=== PATIENT | male | born 1975 | race African-American/Black ===

== ENCOUNTER 2017-03-05 14:13 | Emergency (ER) | payer OTHER ==
[~2017-03-05] VITALS: Ht 170.2 cm; Wt 107.0 kg
[2017-03-05 14:16] VITALS: Ht 170.2 cm; Wt 107.0 kg
--- NOTE | 2017-03-05 14:45 | ERD ---
ER Documentation Chief Complaint Date/Time DATE: 03/05/17 TIME: 14:43 Chief Complaint RT SIDED ABD PAIN X 3 DAYS NO N/V HPI This is a 41-year-old male with a history of cholecystectomy that was done on February 21, 2017 comes emergency department with 5 days of right upper quadrant abdominal pain. This patient states that he has had increasingly painful abdominal pain in the right upper quadrant, it radiates the right flank now and it is intermittent. Patient states that he did see his surgeon yesterday in the office who is Dr. Garcia, and I was told to return to the emergency department the pain does not improve. He has not tried anything for pain, previously for the surgery he was taking [place]. He denies any fevers, chills, nausea, vomiting. He denies chest pain, shortness of breath. ROS All systems reviewed and are negative except as per history of present illness. Physical Exam Vitals Vital Signs Date Time Temp Pulse Resp B/P Pulse Ox O2 Delivery O2 Flow Rate FiO2 03/05/17 14:16 98.2 101 19 143/69 100 Physical Exam General: Well-developed, well-nourished. The patient appears in no acute distress. HEENT: Head is normocephalic, atraumatic. No scleral icterus. Neck: Supple. Nontender. Lungs: Clear to auscultation. Normal air movement. Heart: Regular rate and rhythm. S1 and S2 are normal. No murmurs, gallops, or rubs. Abdomen: Soft, mild tenderness in the right upper quadrant nondistended. Bowel sounds are normoactive. Scars present in right side, intact, no dehiscence. No drainage of the wounds. No McBurney's tenderness or right rebound or guarding. Extremities: No clubbing or cyanosis. Normal pulses. Moving extremities x 4. No weakness. Neurologic: Alert and oriented 3. No focal deficits. Skin: Normal turgor. No rash or lesions. Result Diagram: 03/05/17 1455 03/05/17 1455 Results 24 hrs Laboratory Tests Test 03/05/17 14:55 03/05/17 15:01 White Blood Count 3.710^3/ul Red Blood Count 5.2310^6/ul Hemoglobin 14.5g/dl Hematocrit 43.7% Mean Corpuscular Volume 83.6fl Mean Corpuscular Hemoglobin 27.7pg Mean Corpuscular Hemoglobin Concent 33.2g/dl Red Cell Distribution Width 13.9% Platelet Count 57316^3/UL Mean Platelet Volume 9.6fl Neutrophils % 33.7% Lymphocytes % 54.3% Monocytes % 8.3% Eosinophils % 3.2% Basophils % 0.5% Nucleated Red Blood Cells % 0.0/100WBC Neutrophils # 1.310^3/ul Lymphocytes # 2.010^3/ul Monocytes # 0.310^3/ul Eosinophils # 0.110^3/ul Basophils # 0.010^3/ul Nucleated Red Blood Cells # 0.010^3/ul Sodium Level 140mmol/L Potassium Level 4.1mmol/L Chloride Level 103mmol/L Carbon Dioxide Level 27mmol/L Anion Gap 14 Blood Urea Nitrogen 8mg/dl Creatinine 0.77mg/dl Glucose Level 93mg/dl Calcium Level 9.5mg/dl Total Bilirubin 0.1mg/dl Direct Bilirubin 0.00mg/dl Indirect Bilirubin 0.1mg/dl Aspartate Amino Transf (AST/SGOT) 28IU/L Alanine Aminotransferase (ALT/SGPT) 41IU/L Alkaline Phosphatase 64IU/L Total Protein 7.9g/dl Albumin 4.4g/dl Globulin 3.50g/dl Albumin/Globulin Ratio 1.25 Lipase 89U/L Urine Color YELLOW Urine Clarity CLEAR Urine pH 6.5 Urine Specific [place] 1.020 Urine Ketones TRACE Urine Nitrite NEGATIVE Urine Bilirubin NEGATIVE Urine Urobilinogen 1.0 E.U./dL Urine Leukocyte Esterase NEGATIVE Urine Microscopic RBC NONE SEEN/HPF Urine Microscopic WBC NONE SEEN/HPF Urine Squamous Epithelial Cells RARE Urine Hemoglobin NEGATIVE Urine Glucose NEGATIVE% Urine Total Protein TRACE Current Medications Medications (Trade) Dose Ordered Sig/Mega Route PRN Reason Start Time Stop Time Status Last Admin Dose Admin IV Flush 10 ml 10 ml STK-MED ONCE .ROUTE 03/05/17 16:34 03/05/17 16:35 DC 03/05/17 16:41 Sodium Chloride (NS) 100 ml @ ud STK-MED ONCE .ROUTE 03/05/17 16:34 03/05/17 16:35 DC 03/05/17 16:43 Iohexol (Omnipaque 300mg/ ml) 30 ml STK-MED ONCE .ROUTE 03/05/17 16:34 03/05/17 16:35 DC Iohexol (Omnipaque 300mg/ ml) 150 ml STK-MED ONCE .ROUTE 03/05/17 16:34 03/05/17 16:35 DC 03/05/17 16:43 PROCEDURE: CT abdomen and pelvis with IV contrast. CLINICAL INDICATION: Abdominal pain. History of cholecystectomy. TECHNIQUE: CT scan of the abdomen and pelvis without contrast was performed on the [employer] volumetric [address] scanner. Approximately a her ccs of Omnipaque- 300 was administered. The patient was scanned without intravenous contrast. Coronal and sagittal reformatted images were obtained from the axial source images. The CTDI vol is 20.24 mGy and the DLP is 1139.82 mGy-cm. COMPARISON: None. FINDINGS: CT abdomen: The lung bases are clear. The heart size is not enlarged and is without pericardial thickening or effusion. The liver is normal in size and is without intrahepatic biliary dilatation. Extensive amount of ill-defined low attenuation lesions throughout the liver are seen. The liver lesions are conglomerate in appearance. The portal vein is patent. The spleen is normal in size and homogeneous in density. The stomach is grossly unremarkable. The pancreas as visualized is normal. The gallbladder has been removed. No common bile duct dilatation is seen. No focal fluid collection in the gallbladder fossa is seen. Mild increased soft tissue density within the gallbladder fossa is seen. The adrenal glands are symmetric and normal. The kidneys are symmetrically unremarkable as well. No renal calculus or obstructive uropathy or mass lesion is seen. The aorta is of normal in caliber. Increased soft tissue density in the umbilical region is seen with a foci of air. There is no retroperitoneal lymphadenopathy. The ross hepatis region is clear. The large bowel is stool- filled. Sigmoid diverticulosis is seen without evidence of diverticulitis. The small and remainder of the large bowel and mesentery, as visualized, are otherwise unremarkable. The normal appendix is identified. CT pelvis: The pelvic organs are normal. The pelvic sidewalls and inguinal regions are clear. No pelvic mass, lymphadenopathy, or free fluid is seen. No acute inflammation is seen. The urinary bladder is within normal limits. The surrounding osseous structures are unremarkable. No osteolytic or osteoblastic lesion is detected. IMPRESSION: 1. Extensive ill-defined liver lesions which are conglomerate in appearance worrisome for neoplastic process. The possibility of an infectious/inflammatory etiology cannot be excluded. Further evaluation with a dynamic contrast enhanced MRI of the liver is recommended. 2. Status post cholecystectomy likely postoperative changes as detailed above. 3. Sigmoid diverticulosis without evidence of diverticulitis. 4. Stool filled large bowel. Results were discussed with Star Kaur Pa-c at 03/05/2017 4:50:49 PM RPTAT: HPNM Joaquín Mendieta Physician Date Time Electronically viewed and signed by Joaquín Mendieta, Physician on 03/05/2017 16 :54 / Procedures/MDM ED course: Patient had an IV line established, blood and urine were obtained. CT abdomen pelvis with IV contrast was ordered. He was offered pain medication however he kindly declined at this time. MDM: 41-year-old male status post cholecystectomy comes in with right sided upper abdominal pain for 5 days. Patient presents with right upper quadrant pain, he reports that he did not have imaging prior to his cholecystectomy, the last time was at the end of 2015. He has a liver lesion, possibly neoplastic versus infectious Liver enzymes are normal at this time, and platelets were normal. Given this as he is not in liver failure, and does not present with acute hepatitis, and his pain is under control at this time, patient will be discharged to have an outpatient workup. Patient's labs also did not have any leukocytosis, transaminitis or pancreatitis, there is no evidence of biliary leakage, as a CT abdomen pelvis of the rest of the right upper quadrant was unremarkable at this time. He was given copies of all imaging tests results and blood work, he was asked to follow-up with his primary care physician who is Dr. Perry, and also notify his surgeon regarding these results. The case was reviewed and discussed with Dr Perry who agrees with the plan of care including labs, treatment, and advanced imaging as appropriate. Departure Diagnosis: Primary Impression: Abdominal pain Additional Impression: Lesion of liver Condition: Good STAR KAUR PA-C March 05, 2017 14:45
[2017-03-05 15:13] LABS: ADD SCAN DIFF NO
[2017-03-05 15:15] LABS: BASOPHILS % 0.5 % (0.0-2.0); EOSINOPHILS # 0.1 10^3/ul (0.0-0.5); EOSINOPHILS % 3.2 % (0.0-7.0); HEMATOCRIT 43.7 % (42.0-52.0); HEMOGLOBIN 14.5 g/dl (14.0-18.0); LYMPHOCYTES % 54.3 % (15.0-51.0); MEAN CORPUSCULAR HEMOGLOBIN 27.7 pg (29.0-33.0); MEAN CORPUSCULAR HGB CONC 33.2 g/dl (32.0-37.0); MEAN CORPUSCULAR VOLUME 83.6 fl (82.0-101.0); MEAN PLATELET VOLUME 9.6 fl (7.4-10.4); MONOCYTE # 0.3 10^3/ul (0.3-0.9); MONOCYTES % 8.3 % (0.0-11.0); NEUTROPHIL # 1.3 10^3/ul (1.6-7.5); NEUTROPHILS % 33.7 % (39.0-77.0); PLATELET COUNT 270 10^3/UL (140-415); RED BLOOD COUNT 5.23 10^6/ul (4.70-6.10); RED CELL DISTRIBUTION WIDTH 13.9 % (11.5-14.5); WHITE BLOOD COUNT 3.7 10^3/ul (4.8-10.8)
[2017-03-05 15:24] LABS: ADD UMIC YES; URINE BILIRUBIN (Dip) NEGATIVE (NEGATIVE); URINE BLOOD (Dip) NEGATIVE (NEGATIVE); URINE COLOR YELLOW (YELLOW); URINE GLUCOSE (Dip) NEGATIVE (NEGATIVE); URINE KETONES (Dip) TRACE (NEGATIVE); URINE LEUKOCYTE ESTERASE (Dip) NEGATIVE (NEGATIVE); URINE NITRITE (Dip) NEGATIVE (NEGATIVE); URINE TOTAL PROTEIN (Dip) TRACE (NEGATIVE); URINE UROBILINOGEN (Dip) 1.0 E.U./dL (0.1-1.0)
[2017-03-05 15:38] LABS: ALBUMIN 4.4 g/dl (3.3-4.9); ALBUMIN/GLOBULIN RATIO 1.25; BILIRUBIN,INDIRECT 0.1 mg/dl (0-1.1); BILIRUBIN,TOTAL 0.1 mg/dl (0.2-1.3); CALCIUM 9.5 mg/dl (8.4-10.2); CREATININE 0.77 mg/dl (0.61-1.24); POTASSIUM 4.1 mmol/L (3.5-5.1); TOTAL PROTEIN 7.9 g/dl (6.1-8.1)
[2017-03-05 15:53] LABS: SQUAMOUS EPITHELIAL CELL,UR RARE; URINE RBCS NONE SEEN /HPF (0)
[2017-03-05] MEDS ORDERED: IOHEXOL 300MG/ML 30 ML BTL ONE (16:34)
[2017-03-05] MEDS ORDERED: SOD CHLORIDE 0.9% 100 ML ONE (16:34)
[2017-03-05] MEDS ORDERED: IOHEXOL 300MG/ML 150 ML BTL ONE (16:34)
--- NOTE | 2017-03-05 16:55 | RADRPT ---
PROCEDURE: CT abdomen and pelvis with IV contrast. CLINICAL INDICATION: Abdominal pain. History of cholecystectomy. TECHNIQUE: CT scan of the abdomen and pelvis without contrast was performed on the [employer] volumetric [address] scanner. Approximately a her ccs of Omnipaque-300 was administered. The patient was scan gwen without intravenous contrast. Coronal and sagittal reformatted images were obtained from the axi al source images. The CTDI vol is 20.24 mGy and the DLP is 1139.82 mGy-cm. COMPARISON: None. FINDINGS: CT abdomen: The lung bases are clear. The heart size is not enlarged and is without pericardial thickening or e ffusion. The liver is normal in size and is without intrahepatic biliary dilatation. Extensive amount of ill- defined low attenuation lesions throughout the liver are seen. The liver lesions are conglomerate i n appearance. The portal vein is patent. The spleen is normal in size and homogeneous in density. The stomach is grossly unremarkable. The pancreas as visualized is normal. The gallbladder has bee n removed. No common bile duct dilatation is seen. No focal fluid collection in the gallbladder fos sa is seen. Mild increased soft tissue density within the gallbladder fossa is seen. The adrenal gl ands are symmetric and normal. The kidneys are symmetrically unremarkable as well. No renal calcul us or obstructive uropathy or mass lesion is seen. The aorta is of normal in caliber. Increased soft tissue density in the umbilical region is seen wit h a foci of air. There is no retroperitoneal lymphadenopathy. The ross hepatis region is clear. T he large bowel is stool-filled. Sigmoid diverticulosis is seen without evidence of diverticulitis. T he small and remainder of the large bowel and mesentery, as visualized, are otherwise unremarkable. The normal appendix is identified. CT pelvis: The pelvic organs are normal. The pelvic sidewalls and inguinal regions are clear. No pelvic mass, lymphadenopathy, or free fluid is seen. No acute inflammation is seen. The urinary bladder is wit hin normal limits. The surrounding osseous structures are unremarkable. No osteolytic or osteoblastic lesion is detect ed. IMPRESSION: 1. Extensive ill-defined liver lesions which are conglomerate in appearance worrisome for neoplasti c process. The possibility of an infectious/inflammatory etiology cannot be excluded. Further evalua tion with a dynamic contrast enhanced MRI of the liver is recommended. 2. Status post cholecystectomy likely postoperative changes as detailed above. 3. Sigmoid diverticulosis without evidence of diverticulitis. 4. Stool filled large bowel. Results were discussed with Rebecca Kaur Pa-c at 03/05/2017 4:50:49 PM RPTAT: HPNM Joaquín Mendieta, Physician Date Time Electronically viewed and signed by Joaquín Mendieta Physician on 03/05/2017 16:54 /
[2017-03-05 17:13] VITALS: BP 139/70; PULSE 82; RESP 18; TEMP 98.4
== END 2017-03-05 17:15 | disposition home or self-care (01) ==
LOC: FTE 14:13
DX: R10.11 Right upper quadrant pain (principal); K76.9 Liver disease, unspecified
CPT/HCPCS: 36415; 74177; 80053; 81001; 83690; 85025; Q9967; Z7502; Z7610; 81003

== ENCOUNTER 2018-12-12 05:33 | Emergency (ER) | payer OTHER ==
[~2018-12-12] VITALS: Ht 170.2 cm; Wt 103.0 kg
[2018-12-12 05:38] VITALS: Ht 170.2 cm; Wt 103.0 kg
[2018-12-12] MEDS ORDERED: PHEN-547 PO (07:05)
--- NOTE | 2018-12-12 07:08 | ERD ---
ER Documentation Chief Complaint Chief Complaint on and off abdominal pain x 1 week. also c/o diarrhea HPI 43-year-old male presents the emergency department complaining of abdominal pain. Patient states for approximately a week, he has had a visceral, nonspecific abdominal pain that has come and gone. Pain has not localized. Pain is described as mild to moderate. The pain is associated with diarrhea but no blood in his stool. Patient denies any fevers or vomiting. Patient denies any urinary symptoms. Patient's been able to tolerate oral intake. ROS All systems reviewed and are negative except as per history of present illness. Medications Home Meds Active Scripts Belladonna Alkaloids-Phenobarb* (*) 16.2 Mg/5 Ml Elixir, 5 ML PO Q6H PRN for GI SPASMS, #10 ML Prov:SHELL QUACH 12/12/18 Allergies Allergies: Coded Allergies: No Known Allergy (Unverified , 03/05/17) PMhx/Soc History of Surgery: Yes (cholecystectomy) Anesthesia Reaction: No Hx Neurological Disorder: No Hx Respiratory Disorders: No Hx Cardiac Disorders: Yes (htn) Hx Psychiatric Problems: Yes (depression) Hx Miscellaneous Medical Probl: No Hx Alcohol Use: Yes Hx Substance Use: No Hx Tobacco Use: Yes FmHx Noncontributory at this time Physical Exam Vitals Vital Signs Date Temp Pulse Resp B/P (MAP) Pulse Ox O2 O2 Flow FiO2 Time Delivery Rate 12/12/18 91 17 126/88 95 Room Air 06:12 (101) 12/12/18 97.6 110 18 133/88 95 05:38 (103) Physical Exam GENERAL: The patient is well developed and appropriate for usual state of health in no apparent distress HEENT: Pupils equal, round, and reactive to light. EOMI. There is no scleral icterus. NECK: C-spine is soft and supple, there is no meningismus. There is no cervical lymphadenopathy. LUNGS: Clear to auscultation bilaterally. There are no rales, wheezes or rhonchi. HEART: Regular rate and rhythm, no murmurs, clicks, rubs or gallops. ABDOMEN: Soft, non-tender, non-distended. There are bowel sounds in all four quadrants. No rebound or guarding. Cholecystectomy scar EXTREMITIES: There is no peripheral cyanosis or edema. No focal swelling or erythema. NEURO: The patient moves all four extremities with 5/5 strength. Cranial nerves II - XII are intact. Normal gait. Alert and oriented SKIN: There is no apparent rash or petechiae. HEME/LYMPHATIC: There is no evidence of excessive bruising or lymphedema. PSYCHIATRIC: The patient does not appear anxious or depressed. Result Diagram: 12/12/18 0607 12/12/18 0607 Results 24 hrs Laboratory Tests Test 12/12/18 06:07 White Blood Count 4.6 10^3/ul Red Blood Count 5.36 10^6/ul Hemoglobin 15.4 g/dl Hematocrit 46.2 % Mean Corpuscular Volume 86.2 fl Mean Corpuscular Hemoglobin 28.7 pg Mean Corpuscular Hemoglobin Concent 33.3 g/dl Red Cell Distribution Width 13.2 % Platelet Count 298 10^3/UL Mean Platelet Volume 9.0 fl Immature Granulocytes % 0.400 % Neutrophils % 41.7 % Lymphocytes % 46.2 % Monocytes % 8.8 % Eosinophils % 2.2 % Basophils % 0.7 % Nucleated Red Blood Cells % 0.0 /100WBC Immature Granulocytes # 0.020 10^3/ul Neutrophils # 1.9 10^3/ul Lymphocytes # 2.1 10^3/ul Monocytes # 0.4 10^3/ul Eosinophils # 0.1 10^3/ul Basophils # 0.0 10^3/ul Nucleated Red Blood Cells # 0.0 10^3/ul Urine Color YELLOW Urine Clarity CLEAR Urine pH 5.0 Urine Specific [place] 1.019 Urine Ketones TRACE mg/dL Urine Nitrite NEGATIVE mg/dL Urine Bilirubin NEGATIVE mg/dL Urine Urobilinogen NEGATIVE mg/dL Urine Leukocyte Esterase NEGATIVE [place]/ul Urine Hemoglobin NEGATIVE mg/dL Urine Glucose NEGATIVE mg/dL Urine Total Protein NEGATIVE mg/dl Sodium Level 145 mmol/L Potassium Level 4.4 mmol/L Chloride Level 105 mmol/L Carbon Dioxide Level 27 mmol/L Anion Gap 13 Blood Urea Nitrogen 9 mg/dl Creatinine 1.06 mg/dl Est Glomerular Filtrat Rate mL/min > 60 mL/min Glucose Level 97 mg/dl Calcium Level 9.9 mg/dl Total Bilirubin 0.0 mg/dl Direct Bilirubin 0.00 mg/dl Indirect Bilirubin 0.0 mg/dl Aspartate Amino Transf (AST/SGOT) 27 IU/L Alanine Aminotransferase (ALT/SGPT) 23 IU/L Alkaline Phosphatase 70 IU/L Total Protein 8.1 g/dl Albumin 4.6 g/dl Globulin 3.50 g/dl Albumin/Globulin Ratio 1.31 Lipase 104 U/L Procedures/MDM Patient was taken to a room, seen and evaluated. Comfort measures were initiated. Diagnostic tests were ordered and reviewed. RADIOLOGY: Reviewed with the radiologist REEVALUATION: Serial examinations of the abdomen remained benign. Diagnostic tests were appreciated and discussed with the patient. MEDICAL DECISION MAKIN-year-old male presents the emergency part with abdominal pain of uncertain etiology. Diagnostic workup focused on intra-abd ominal infections and other concerns. Based on clinical examination as well as diagnostic evaluation, he shows no evidence of appendicitis or other high-risk concerns. This is likely a functional abdominal pain that will be treated supportively. He is otherwise nontoxic and appropriate for outpatient care. Departure Diagnosis: Primary Impression: Abdominal pain Condition: Stable Patient Instructions: Abdominal Pain Additional Instructions: See your doctor for follow-up as discussed. Take a copy of your test results, if appropriate, to this follow-up visit. See your doctor or return here if your symptoms do not improve as expected. At any time, please return to the emergency department for any change or worsening in her symptoms. SHELL QUACH Dec 12, 2018 07:08
[2018-12-12 07:35] VITALS: BP 125/82; PULSE 67; RESP 17
== END 2018-12-12 07:36 | disposition home or self-care (01) ==
LOC: E/R 05:33
DX: R10.9 Unspecified abdominal pain (principal); I10 Essential (primary) hypertension; Z87.891 Personal history of nicotine dependence
CPT/HCPCS: 36415; 74176; 80053; 81003; 83690; 85025; Z7502; Z7610

== ENCOUNTER 2019-04-05 01:56 | Emergency (ER) | payer OTHER ==
[~2019-04-05] VITALS: Ht 170.2 cm; Wt 106.4 kg
[~2019-04-05 01:56] MED LIST: PHEN-547 PO
[2019-04-05 02:00] VITALS: BP 152/83; PULSE 104; RESP 20; Ht 170.2 cm; Wt 106.4 kg
[2019-04-05] MEDS ORDERED: OFLO5DRO7 RIGHT EAR (04:13)
[2019-04-05] MEDS ORDERED: AMOX1TAB10 PO (04:13)
--- NOTE | 2019-04-05 04:14 | ERD ---
ER Documentation Chief Complaint Chief Complaint states can't hear on right ear/earache x 2 days ROS All systems reviewed and are negative except as per history of present illness. Medications Home Meds Active Scripts Amoxicillin/Potassium Clav (Amox-Clav 875-125 mg Tablet) 875-125 mg Tab, 1 TAB PO BID for ear infection for 5 Days, #10 TAB Prov:ASH PALENCIA DO 04/05/19 Ofloxacin Otic (Ofloxacin Otic) 5 Ml Drops, 10 DROP RIGHT EAR DAILY for ear infection for 7 Days, #1 BOTTLE Prov:ASH PALENCIA DO 04/05/19 Belladonna Alkaloids-Phenobarb* (*) 16.2 Mg/5 Ml Elixir, 5 ML PO Q6H PRN for GI SPASMS, #10 ML Prov:SHELL QUACH 12/12/18 Allergies Allergies: Coded Allergies: No Known Allergy (Unverified , 03/05/17) PMhx/Soc History of Surgery: Yes (cholecystectomy) Anesthesia Reaction: No Hx Neurological Disorder: No Hx Respiratory Disorders: No Hx Cardiac Disorders: Yes (htn) Hx Psychiatric Problems: Yes (depression) Hx Miscellaneous Medical Probl: No Hx Alcohol Use: Yes Hx Substance Use: No Hx Tobacco Use: Yes Smoking Status: Current every day smoker Physical Exam Vitals Vital Signs Date Temp Pulse Resp B/P (MAP) Pulse Ox O2 O2 Flow FiO2 Time Delivery Rate 04/05/19 98.5 104 20 152/83 95 02:00 (106) Physical Exam Const: No acute distress Head: Atraumatic Eyes: Normal Conjunctiva ENT: Normal External Ears, Nose and Mouth. Neck: Full range of motion. No meningismus. Resp: Clear to auscultation bilaterally Cardio: Regular rate and rhythm, no murmurs Abd: Soft, non tender, non distended. Normal bowel sounds Skin: No petechiae or rashes Back: No midline or flank tenderness Ext: No cyanosis, or edema Neur: Awake and alert Psych: Normal Mood and Affect Departure Diagnosis: Primary Impression: Right otitis externa Otitis externa type: unspecified type Chronicity: unspecified Qualified Codes: H60.91 - Unspecified otitis externa, right ear Condition: Fair Patient Instructions: External Ear Infection (Adult) Referrals: COMMUNITY CLINICS YOU HAVE RECEIVED A MEDICAL SCREENING EXAM AND THE RESULTS INDICATE THAT YOU DO NOT HAVE A CONDITION THAT REQUIRES URGENT TREATMENT IN THE EMERGENCY DEPARTMENT. FURTHER EVALUATION AND TREATMENT OF YOUR CONDITION CAN WAIT UNTIL YOU ARE SEEN IN YOUR DOCTORS OFFICE WITHIN THE NEXT 1-2 DAYS. IT IS YOUR RESPONSIBILITY TO MAKE AN APPOINTMENT FOR FOLOW-UP CARE. IF YOU HAVE A PRIMARY DOCTOR --you should call your primary doctor and schedule an appointment IF YOU DO NOT HAVE A PRIMARY DOCTOR YOU CAN CALL OUR PHYSICIAN REFERRAL HOTLINE AT IF YOU CAN NOT AFFORD TO SEE A PHYSICIAN YOU CAN CHOSE FROM THE FOLLOWING [facility] CL[facility] [address] [address] [facility] [facility]. [facility] [address] [facility] [facility] [address] [facility]. [facility] [address] [facility]. [facility]. [address] Additional Instructions: Call your primary care doctor TOMORROW for an appointment during the next 1-2 days.See the doctor sooner or return here if your condition worsens before your appointment time. ASH PALENCIA DO Apr 05, 2019 04:14
== END 2019-04-05 05:26 | disposition home or self-care (01) ==
LOC: FTE 01:56
DX: H60.91 Unspecified otitis externa, right ear (principal); I10 Essential (primary) hypertension; F17.210 Nicotine dependence, cigarettes, uncomplicated
CPT/HCPCS: 99283

== ENCOUNTER 2019-04-10 11:49 | Emergency (ER) | payer OTHER ==
[~2019-04-10] VITALS: Ht 170.2 cm; Wt 105.0 kg
[~2019-04-10 11:49] MED LIST changes: +AMOX1TAB10 PO; +OFLO5DRO7 RIGHT EAR
[2019-04-10 11:51] VITALS: Ht 170.2 cm; Wt 105.0 kg
[2019-04-10] MEDS ORDERED: CIPR7.5D RIGHT EAR (13:36)
--- NOTE | 2019-04-10 13:38 | ERD ---
ER Documentation Chief Complaint Chief Complaint RT EAR PAIN /DISCHARGE X 1 WEEK HPI 43-year-old male presents with right ear pain x1 week. He reports that he came to this ED a week ago was diagnosed with a right ear infection when she was prescribed ofloxacin and Augmentin. He woke up this morning with the same ear pain and additional white discharge. He states that the ear pain is 6 out of 10 intensity and worse when his ears pressed on moved. He denies any hearing loss or tinnitus. He denies any fever, coughs or any new symptoms at this time. He states that the discharge worried him so he wanted to come in and get checked again today. He states that he is taking his Augmentin appropriately and is almost finished with the course. He states that the pharmacy gave him ofloxacin ophthalmologic drops instead of eardrops due to insurance purposes. He denies any tenderness to the mastoid process. Denies sick contacts or recent travel. ROS All systems reviewed and are negative except as per history of present illness. Medications Home Meds Active Scripts Ciprofloxacin Hcl/Dexameth (Ciprodex Otic Suspension) 7.5 Ml Drops.susp, 4 DROP RIGHT EAR BID for 7 Days, EA Prov:JESUS HARRISON PA-C 04/10/19 Amoxicillin/Potassium Clav (Amox-Clav 875-125 mg Tablet) 875-125 mg Tab, 1 TAB PO BID for ear infection for 5 Days, #10 TAB Prov:ASH PALENCIA DO 04/05/19 Ofloxacin Otic (Ofloxacin Otic) 5 Ml Drops, 10 DROP RIGHT EAR DAILY for ear infection for 7 Days, #1 BOTTLE Prov:ASH PALENCIA DO 04/05/19 Belladonna Alkaloids-Phenobarb* (*) 16.2 Mg/5 Ml Elixir, 5 ML PO Q6H PRN for GI SPASMS, #10 ML Prov:SHELL QUACH 12/12/18 Allergies Allergies: Coded Allergies: No Known Allergy (Unverified , 03/05/17) PMhx/Soc History of Surgery: Yes (cholecystectomy) Anesthesia Reaction: No Hx Neurological Disorder: No Hx Respiratory Disorders: No Hx Cardiac Disorders: Yes (htn) Hx Psychiatric Problems: Yes (depression) Hx Miscellaneous Medical Probl: No Hx Alcohol Use: Yes Hx Substance Use: No Hx Tobacco Use: Yes Smoking Status: Current every day smoker Physical Exam Vitals Vital Signs Date p Pulse Resp B/P (MAP) Pulse Ox O2 O2 Flow FiO2 Time Delivery Rate 04/10/19 98.2 98 18 131/83 95 Room Air 13:51 (99) 04/10/19 97.9 102 18 140/72 96 11:51 (94) Physical Exam Const: No acute distress Head: Atraumatic Eyes: Normal Conjunctiva ENT: Normal External Nose and Mouth. Right Ear: Tenderness on pressing on the tragus. Tenderness on insertion speculum in the ear canal. White discharge seen in the ear canal. Ear canals slightly erythematous, tympanic membrane nonbulging noninflamed. Neck: Full range of motion Resp: Wheezing throughout lungs Cardio: Regular rate and rhythm Abd: Soft, non tender, non distended Skin: No rashes Back: No midline tenderness Ext: No cyanosis, or edema Neur: Awake and alert Psych: Normal Mood and Affect Procedures/MDM ED COURSE: The patient was stable throughout ED course. I kept the patient informed of laboratory and diagnostic imaging results throughout the ED course. MEDICATIONS GIVEN: [None.] MEDICAL DECISION MAKING: Patient is a 43-year-old male reporting to the ED for right ear pain. He reports that he came to the ED 1 week ago for similar condition. He states that he was diagnosed with a right ear infection and was given ofloxacin eardrops and Augmentin antibiotics. He states that his ofloxacin eardrops were not covered by insurance but the pharmacy gave him ofloxacin ophthalmologic eyedrops and told him to use it instead. Patient states that he did so and has been taking Augmentin by mouth appropriately. He states that his ear still hurts and he has developed white discharge from the ear this morning which concerned him. He denies any fevers, chills, coughs, or any other new symptoms. Physical exam it appeared that the ear infection was improving as there was no severe erythema, no bulging tympanic membrane. H&P and other data not c/w emergent process (eg. NAS, meningitis, mastoiditis). I reassured the patient that he is improving. I prescribed him Ciprodex eardrops and told him to take Motrin for any pain.. Vital signs were reviewed. Patient is afebrile. Patient was not hypoxic. Patient was hemodynamically stable. PRESCRIPTION: Ciprodex DISCHARGE: At this time, patient is stable for discharge and outpatient management. I have instructed the patient to follow-up with his/her primary care physician in 1-2 days. I have discussed with the patient the possibility of needing to see a specialist for further workup and imaging studies if symptoms persist. I have instructed the patient to promptly return to the ER for any new or worsening sym ptoms including increased pain, fever, nausea, vomiting, weakness or LOC. The patient and/or family expressed understanding of and agreement with this plan. All questions were answered. Home care instructions were provided. Disclaimer: Inadvertent spelling and grammatical errors are likely due to EHR/dictation software use and do not reflect on the overall quality of patient care. Also, please note that the electronic time recorded on this note does not necessarily reflect the actual time of the patient encounter. Departure Diagnosis: Primary Impression: Otitis externa Otitis externa type: unspecified type Chronicity: unspecified Laterality: right Qualified Codes: H60.91 - Unspecified otitis externa, right ear Condition: Fair Patient Instructions: External Ear Infection (Adult) Referrals: [facility] YOU HAVE RECEIVED A MEDICAL SCREENING EXAM AND THE RESULTS INDICATE THAT YOU DO NOT HAVE A CONDITION THAT REQUIRES URGENT TREATMENT IN THE EMERGENCY DEPARTMENT. FURTHER EVALUATION AND TREATMENT OF YOUR CONDITION CAN WAIT UNTIL YOU ARE SEEN IN YOUR DOCTORS OFFICE WITHIN THE NEXT 1-2 DAYS. IT IS YOUR RESPONSIBILITY TO MAKE AN APPOINTMENT FOR FOLOW-UP CARE. IF YOU HAVE A PRIMARY DOCTOR --you should call your primary doctor and schedule an appointment IF YOU DO NOT HAVE A PRIMARY DOCTOR YOU CAN CALL OUR PHYSICIAN REFERRAL HOTLINE AT IF YOU CAN NOT AFFORD TO SEE A PHYSICIAN YOU CAN CHOSE FROM THE FOLLOWING [facility] [address] [facility] [address] [facility] [facility] [address] [facility] [address] [facility] [address] [facility]. [facility]. [address] [facility]. [facility] YOU HAVE RECEIVED A MEDICAL SCREENING EXAM AND THE RESULTS INDICATE THAT YOU DO NOT HAVE A CONDITION THAT REQUIRES URGENT TREATMENT IN THE EMERGENCY DEPARTMENT. FURTHER EVALUATION AND TREATMENT OF YOUR CONDITION CAN WAIT UNTIL YOU ARE SEEN IN YOUR DOCTORS OFFICE WITHIN THE NEXT 1-2 DAYS. IT IS YOUR RESPONSIBILITY TO MAKE AN APPOINTMENT FOR FOLOW-UP CARE. IF YOU HAVE A PRIMARY DOCTOR --you should call your primary doctor and schedule and appointment IF YOU DO NOT HAVE A PRIMARY DOCTOR YOU CAN CALL OUR PHYSICIAN REFERRAL HOTLINE AT . IF YOU CAN NOT AFFORD TO SEE A PHYSICIAN YOU CAN CHOSE FROM THE FOLLOWING [facility] INSTITUTIONS: [facility] [address] [place] [address] [facility] [address] [place] [address] [facility] [address] [place] [address] Additional Instructions: Follow-up with the primary care provider with the numbers listed in the packet for community health clinic that is local. If symptoms persist follow-up with primary care for referral to ENT Call your primary care doctor TOMORROW for an appointment during the next 1-2 days.See the doctor sooner or return here if your condition worsens before your appointment time. JESUS HARRISON PA-C Apr 10, 2019 13:38
[2019-04-10 13:51] VITALS: BP 131/83; PULSE 98; RESP 18
== END 2019-04-10 13:46 | disposition home or self-care (01) ==
LOC: FTE 11:49
DX: H60.91 Unspecified otitis externa, right ear (principal); I10 Essential (primary) hypertension; F17.210 Nicotine dependence, cigarettes, uncomplicated
CPT/HCPCS: 99283